=== PATIENT | male | born 1950 | race Caucasian/White ===

== ENCOUNTER 2024-04-04 06:12 | Day surgery (SDC) | payer OTHER ==
[~2024-04-04] VITALS: Ht 182.9 cm; Wt 103.2 kg
[~2024-04-04 06:12] MED LIST: ASPI325 PO; ATOR80 PO; BACLOFEN5 M1 PO; BENADRYL25 M1 PO; Balanced Salt Epinephrine Irrigation Solution 500 mL IR SCH; DULO60 PO; Lidocaine HCl/Pf 1% 5 ML VIAL XX SCH; Moxifloxacin HCL 0.5 MG/0.1 ML 0.4MLSYR RIGHTEYE SCH; NS 500 ML IV ONE; PHENYLEPHRINE\\TROPICAMIDE\\TETRACAINE OPHTHALMIC DILATING SOLN RIGHTEYE PRN; Povidone-Iodine 450 DROP/30 ML Solution ONE; Povidone-Iodine 450 DROP/30 ML Solution RIGHTEYE SCH; Tetracaine HCl/Pf 0.5% Opth Soln 4 ml ONE; Triamcinolone Inj Susp 40 MG / ML 1ML Vial INJ SCH; VITAMIN D310 MC4 PO
[2024-04-04] MEDS ORDERED: Triamcinolone Inj Susp 40 MG / ML 1ML Vial ONE (06:41)
[2024-04-04] MEDS ORDERED: Lidocaine HCl/Pf 1% 5 ML VIAL ONE (06:41)
[2024-04-04] MEDS ORDERED: FentaNYL Citrate 50 MCG/ML 2 ML Injection ONE (07:57)
[2024-04-04 08:25] VITALS: BP 151/79
--- NOTE | 2024-04-04 08:43 | NUR ---
04/04/24 0843 SHAINA MELCHOR WAITING FOR SON FRANCISCO J TO PICK HIM UP
== END 2024-04-04 08:42 | disposition home or self-care (01) ==
LOC: ORSCSDS 06:12
PROVIDERS: Ophthalmology
PROC: 08RJ3JZ Replacement of Right Lens with Synthetic Substitute, Percutaneous Approach (ICD-10-PCS; principal; 2024-04-04 08:00)
DX: H25.813 Combined forms of age-related cataract, bilateral (principal); I10 Essential (primary) hypertension; E78.5 Hyperlipidemia, unspecified; F32.A Depression, unspecified; Z86.73 Personal history of transient ischemic attack (TIA), and cerebral infarction without residual deficits; Z79.82 Long term (current) use of aspirin; Z79.899 Other long term (current) drug therapy
CPT/HCPCS: J2001; J2003; J3010; J3301; J7040; V2632

== ENCOUNTER 2024-04-18 06:25 | Day surgery (SDC) | payer OTHER ==
[~2024-04-18] VITALS: Ht 182.9 cm; Wt 104.0 kg
[~2024-04-18 06:25] MED LIST changes: +Moxifloxacin HCL 0.5 MG/0.1 ML 0.4MLSYR LEFTEYE SCH; -Moxifloxacin HCL 0.5 MG/0.1 ML 0.4MLSYR RIGHTEYE SCH; +PHENYLEPHRINE\\TROPICAMIDE\\TETRACAINE OPHTHALMIC DILATING SOLN LEFTEYE PRN; -PHENYLEPHRINE\\TROPICAMIDE\\TETRACAINE OPHTHALMIC DILATING SOLN RIGHTEYE PRN; +Povidone-Iodine 450 DROP/30 ML Solution LEFTEYE SCH; -Povidone-Iodine 450 DROP/30 ML Solution RIGHTEYE SCH
[2024-04-18] MEDS ORDERED: Triamcinolone Inj Susp 40 MG / ML 1ML Vial ONE (06:53)
[2024-04-18] MEDS ORDERED: NS 500 ML IV ONE (08:10)
[2024-04-18] MEDS ORDERED: Midazolam HCl 1MG / ML 2ML Vial ONE (08:47)
[2024-04-18 09:29] VITALS: BP 143/76
--- NOTE | 2024-04-18 10:39 | NUR ---
04/18/24 1039 SHAINA MELCHOR PT HAD TO WAIT FOR HIS SON FOR QUITE A WHILE PT GAVE WRONG # FOR HIS SON. FINALLY, CONTACT WAS MADE WITH PATIENT SON AND HE WILL PICK HIM UP SHORTLY.
== END 2024-04-18 09:35 | disposition home or self-care (01) ==
LOC: ORSCSDS 06:25
PROVIDERS: Ophthalmology
PROC: 08RK3JZ Replacement of Left Lens with Synthetic Substitute, Percutaneous Approach (ICD-10-PCS; principal; 2024-04-18 09:00)
DX: H25.812 Combined forms of age-related cataract, left eye (principal); H52.202 Unspecified astigmatism, left eye; Z96.1 Presence of intraocular lens; I10 Essential (primary) hypertension; E78.5 Hyperlipidemia, unspecified; Z86.73 Personal history of transient ischemic attack (TIA), and cerebral infarction without residual deficits; E66.9 Obesity, unspecified; Z68.31 Body mass index [BMI] 31.0-31.9, adult; Z79.899 Other long term (current) drug therapy
CPT/HCPCS: J2250; J3301; J7040; V2632